=== PATIENT | female | born 1995 | race Two or more races ===

== ENCOUNTER 2019-12-18 18:05 | Emergency (ER) | payer OTHER ==
[~2019-12-18] VITALS: Ht 167.6 cm; Wt 118.1 kg
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
[2019-12-18 18:29] VITALS: BP 120/87
[2019-12-18] MEDS ORDERED: ACETAMINOPHEN 500 MG TABLET PO ONE (18:45)
[2019-12-18 19:36] LABS: CLARITY,URINE CLOUDY; COLOR,URINE YELLOW
[2019-12-18 19:45] LABS: BACTERIA,URINE MANY /HPF (0-FEW); SQUAMOUS EPITHELIAL CELL,UR MOD /LPF; U PREG PATIENT NEGATIVE (NEG)
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
[2019-12-18] MEDS ORDERED: NITR100C62 PO (21:48)
[2019-12-18 22:02] LABS: GLUCOSE,URINE NEG (NEG)
[2019-12-18 22:03] LABS: BILIRUBIN,URINE NEG (NEG)
[2019-12-18 22:05] LABS: UROBILINOGEN,URINE 0.2 mg/dL (0.2 mg/dL)
[2019-12-18 22:06] LABS: NITRITE,URINE NEG (NEG)
== END 2019-12-18 21:45 | disposition home or self-care (01) ==
LOC: ER 18:05
DX: S00.03XA Contusion of scalp, initial encounter (principal); S40.011A Contusion of right shoulder, initial encounter; S20.211A Contusion of right front wall of thorax, initial encounter; S30.1XXA Contusion of abdominal wall, initial encounter; F17.200 Nicotine dependence, unspecified, uncomplicated; V43.62XA Car passenger injured in collision with other type car in traffic accident, initial encounter; Y93.89 Activity, other specified; Y92.488 Other paved roadways as the place of occurrence of the external cause; Y99.8 Other external cause status
CPT/HCPCS: 70450; 71045; 72125; 73030; 81001; 81025; 87086; 99285-25